=== PATIENT | male | born 1965 | race Caucasian/White ===

== ENCOUNTER 2025-05-29 12:19 | Emergency (ER) | payer OTHER, SELFPAY ==
[2025-05-29] VITALS (8 sets, daily range): BP systolic 121–144; BP diastolic 58–76; PULSE 81–95; RESP 14–32; TEMP 36.3; O2SAT 92–96; BMI 29.8
--- NOTE | 2025-05-29 12:57 | EKG_ITS ---
[facility]
--- NOTE | 2025-05-29 12:57 | DI.CT.S_ITS ---
PROCEDURE: CT ABDOMEN PELVIS W CON
[2025-05-29 13:21] LABS: Hematocrit 29.2 % (41-53); Hemoglobin 9.6 g/dL (13.5-17.5); Mean Corpuscular HGB Conc 32.7 % (30-36); Mean Corpuscular Hemoglobin 27.5 PG (26-34); Mean Corpuscular Volume 84.1 fL (80-100); Platelet Count 521 X10^3/uL (150-400)
[2025-05-29 13:24] LABS: Add Manual Diff / Slide Review YES
[2025-05-29 13:31] LABS: Alanine Aminotransferase 42 IU/L (<50); Albumin 3.5 g/dL (3.5-5.0); Albumin Globulin Ratio 1.1 (1.0-2.8); Alkaline Phosphatase 292 U/L (38-126); Blood Urea Nitrogen 53 mg/dL (9-20); Calcium 9.3 mg/dL (8.4-10.2); Carbon Dioxide 31 mmol/L (22-32); Chloride 92 mmol/L (98-107); Estimated Glomerular Filt Rate > 60 mL/min (>60); Globulin 3.3 g/dL (1.7-4.1); Glucose 116 mg/dL (70-99); HEMOLYSIS < 15 (0-50); Lipase 288 U/L (23-300); Potassium 4.8 mmol/L (3.4-5.1); Sodium 130 mmol/L (137-145); Total Protein 6.8 g/dL (6.3-8.2)
[2025-05-29 13:45] LABS: Band Neutrophils Percent 5.0 % (3-7); Basophils Percent Manual 1.0 % (0-1); Eosinophils Percent Manual 1.0 % (2-4); Lymphocytes Percent Manual 10.0 % (25-45); Metamyelocytes Percent 3.0 % (-0); Monocytes Percent Manual 6.0 % (2-11); Myelocytes Percent 8.0 % (-0); Neutrophils Absolute Manual 13561 /uL (3000-5900); Segmented Neutrophils Percent 66.0 % (38-70); Total Cells Counted 100
[2025-05-29 13:46] LABS: Anisocytosis 1+
[2025-05-29 13:48] LABS: Microcytosis 1+
--- NOTE | 2025-05-29 18:17 | ED_ITS ---
HPI - General Adult
--- NOTE | 2025-05-29 18:17 | ED.GENADULT ---
HPI - General Adult General Chief complaint: Abdominal Pain Stated complaint: Distention from LV tumor, PC ref Time Seen by Provider: 05/29/25 12:57 Source: patient Mode of arrival: Wheelchair History of Present Illness HPI narrative: 60-year-old gentleman with cholangiocarcinoma stage IV all his care at [facility]. His understanding is that he has a 9 cm liver tumor so metastases to his lungs and lymph nodes. He has failed chemotherapy and he has a appointment tomorrow for radiation consultation and tumor marking. He started second-line chemotherapy 3 days ago with oral debrafenib and trametineb. He has been having increasing abdominal distention and was instructed to come to the ER to have his ascites drained. He notes decreased appetite, weakness and increasing overall malaise. He does have long-acting and short-acting morphine available to take at home for pain control. Related Data Allergies Allergy/AdvReac Type Severity Reaction Status Date / Time No Known Allergies Allergy Mild Verified 05/29/25 12:56 Patient History Smoking Status: Never smoker Exam Initial Vital Signs Initial Vital Signs: Vital Signs Temperature 97.4 F L 05/29/25 12:50 Pulse Rate 85 05/29/25 12:50 Respiratory Rate 18 05/29/25 12:50 Blood Pressure 130/66 05/29/25 12:50 Pulse Oximetry 96 05/29/25 12:50 Oxygen Delivery Method Room Air 05/29/25 12:50 General: Alert appropriate Respiratory: Able to speak in full sentences, no obvious respiratory distress Abdomen: Distended, diffusely tender and firm, no significant fluid shift. He does not have rebound or guarding Skin: No obvious rashes, warm and dry Neurologic: Grossly intact no obvious asymmetries or abnormalities Psych: appropriate insight and affect, cooperative Course Orders Ordered: ED Orders 05/29/25 12:57 CT abdomen pelvis w con Stat EKG-12 Lead Stat 05/29/25 13:05 Complete Blood Count AUTO DIFF Stat Comprehensive Metabolic Panel Stat Lipase Stat Ondansetron HCl (Ondansetron 4 Mg/2 Ml Inj) 4 mg IV NOW PRN PRN Reason: Nausea And Vomiting Ondansetron HCl (Ondansetron 4 Mg Odt) 4 mg PO NOW PRN PRN Reason: Nausea And Vomiting Vital Signs Vital signs: Vital Signs - 8 hr 05/29/25 12:50 05/29/25 16:52 Temperature 97.4 F L Pulse Rate 85 95 H Respiratory Rate 18 14 Blood Pressure 130/66 128/60 Pulse Oximetry 96 92 Oxygen Delivery Method Room Air Room Air Medical Decision Making Lab Data 05/29/25 13:05 05/29/25 13:05 Labs: Lab Results 05/29/25 Range/Units 13:05 WBC 19.1 H (4.5-11.0) X10^3/uL RBC 3.48 L (4.5-5.9) X10^6/uL Hgb 9.6 L (13.5-17.5) g/dL Hct 29.2 L (41-53) % MCV 84.1 (80-100) fL MCH 27.5 (26-34) PG MCHC 32.7 (30-36) % RDW 17.0 H (11.6-14.8) % Plt Count 521 H (150-400) X10^3/uL Neut % (Auto) Not Reportable Lymph % (Auto) Not Reportable [place] % (Auto) Not Reportable Eos % (Auto) Not Reportable Baso % (Auto) Not Reportable Lymph # (Auto) Not Reportable [place] # (Auto) Not Reportable Baso # (Auto) Not Reportable Total Counted 100 Seg Neutrophils % 66.0 (38-70) % Band Neutrophils % 5.0 (3-7) % Lymphocytes % (Manual) 10.0 L (25-45) % Monocytes % (Manual) 6.0 (2-11) % Eosinophils % (Manual) 1.0 L (2-4) % Basophils % (Manual) 1.0 (0-1) % Metamyelocytes % 3.0 H (-0) % Myelocytes % 8.0 H (-0) % Neutrophils # (Manual) 65062 H (7377-4089) /uL Plt Morphology Comment RBC Morphology See below Anisocytosis 1+ H Microcytosis 1+ H Sodium 130 L (137-145) mmol/L Potassium 4.8 (3.4-5.1) mmol/L Chloride 92 L (98-107) mmol/L Carbon Dioxide 31 (22-32) mmol/L BUN 53 H (9-20) mg/dL Creatinine 1.21 (0.66-1.25) mg/dL Estimated GFR > 60 (>60) mL/min BUN/Creatinine Ratio 43.8 H (6-22) Glucose 116 H (70-99) mg/dL Calcium 9.3 (8.4-10.2) mg/dL Total Bilirubin 0.8 (0.2-1.3) mg/dL AST 55 (17-59) IU/L ALT 42 (<50) IU/L Alkaline Phosphatase 292 H (38-126) U/L Total Protein 6.8 (6.3-8.2) g/dL Albumin 3.5 (3.5-5.0) g/dL Globulin 3.3 (1.7-4.1) g/dL Albumin/Globulin Ratio 1.1 (1.0-2.8) Lipase 288 (23-300) U/L Imaging Data CT scan - abdomen/pelvis: Radiologist's Impression: PROCEDURE: CT ABDOMEN PELVIS W CON INDICATIONS: Abdominal pain. History of liver cancer. TECHNIQUE: After the administration of intravenous contrast, axial sections acquired from the lung bases to the pubic symphysis. Coronal and sagittal reformats were performed. For radiation dose reduction, the following was used: automated exposure control, adjustment of mA and/or kV according to patient size. COMPARISON: None. FINDINGS: Image quality: Diagnostic. Lower Chest: Left upper lobe pulmonary nodule measuring 8 mm. Left lower lobe solid pulmonary nodule measuring 6 mm. Moderate right pleural effusion. Compressive atelectasis of the right lower lobe. Epicardial soft tissue nodules concerning for metastases. ABDOMEN: Liver: Confluent mass spanning the falciform ligament along the anterior liver with intraparenchymal an extra capsular extension measuring approximately 9.0 x 6.2 x 6.0 cm. Multiple additional smaller satellite lesions. Large subcapsular fluid collection along the right liver margin with fluid component and solid components. Gallbladder: No radiopaque gallstones or wall thickening. Biliary ducts: No biliary dilation. Pancreas: No ductal dilation. Spleen: Size is within normal limits. Adrenal Glands: No adrenal nodules. Kidneys and Ureters: No hydronephrosis. No solid mass. No complex renal cystic lesion which requires follow up. Stomach and Bowel: Laparoscopic band at the gastroesophageal junction. Normal colonic caliber, without significant wall thickening. Normal appendix. Peritoneum: Moderate ascites mostly in the lower abdomen. Loculated fluid collection along the inferior liver margin and diaphragm. Soft tissue nodular density along the omentum greater along the right abdomen. Ventral Wall: No significant ventral hernia. Abdominal Nodes: No retroperitoneal or mesenteric adenopathy by size criteria. Vessels: Aorta and inferior vena cava are normal in size. Trace calcified atherosclerotic plaque. PELVIS: Pelvic Organs: Unremarkable. Bladder: No bladder wall thickening, accounting for underdistention. Pelvic Nodes: No enlarged lymph nodes. Miscellaneous: No inguinal hernias are seen. Bones: No aggressive osseous abnormality. IMPRESSION: Large dominant liver mass with multiple additional smaller Intraparenchymal hepatic lesions. Subcapsular and perihepatic loculated fluid collections. Cannot exclude hemorrhage. Omental carcinomatosis. Epicardial carcinomatosis. Left pulmonary nodules suspicious for metastases. Moderate right pleural effusion with right lower lobe atelectasis. Moderate ascites. Dictated by: Erlin Loaiza M.D. on 05/29/2025 at 14:13 [facility] Narrative Medical decision making narrative: 60-year-old gentleman with advanced cholangiocarcinoma recently started second-line chemotherapy in his supposed to talk to Radiation oncologist at 11:00 a.m. tomorrow and have radiation markers placed at 2:00 p.m. tomorrow. CBC is 19.1. Platelets are 521. Hemoglobin is 9.6. I do not have comparisons. Chemistries show sodium slightly low at 130. Creatinine at 1.2. Alk-phos is 292. Liver studies are within normal range. Lipase is normal CT scan shows the known large dominant liver mass and pulmonary nodules shows subcapsular and perihepatic loculated fluid collections, omental carcinomatosis, epicardial carcinomatosis, moderate right pleural effusion and only moderate ascites. Findings reviewed with the patient as well as the findings from the CT scan. This sounds like it is a significant progression and simply 3 weeks. Images have been sent down electronically to [facility] and I have contacted the [facility] transfer center to ask them to message his oncologist, Dr. Davey The patient and his are given copies of the CT scan report He is given IV Dilaudid to get on top of his pain, he has immediate active and long-acting morphine available at home. Hopefully Dr. Davey we will be able to talk to him before his 11:00 a.m. radiation oncology appointment tomorrow and help decide if he truly needs to go to [place] or not given the progressive findings on the CT scan. Discharge Plan Departure Patient Disposition: Home Clinical Impression: Cholangiocarcinoma, Abdominal carcinomatosis Activity Restrictions/Additional Instructions: I am so sorry to share such horrible news with you today The CT scan that we did at [facility] suggests that this cancer has spread much further than you were aware of 3 weeks ago. I have sent the images down to [facility] and left a message for Dr. Davey so that he can take a look at them. He is aware that you do have a radiation oncology appointment at 11:00 a.m. and radiation marking appointment at 2:00 p.m. tomorrow I have given you a dose of Dilaudid in the emergency room to hopefully get on top of your pain so that you can continue with the oral morphine regimen at home There is some fluid in your belly but there is not enough at this time to do a paracentesis in the emergency department If you find that you are getting worse or develop any new symptoms, please feel free to return to the emergency department for further evaluation. Stand Alone Forms: Patient Portal/API
[2025-05-29] MEDS: ONDANSETRON 4 MG/2 ML INJ IV (18:59)
== END 2025-05-29 19:30 | disposition home or self-care (01) ==
PROVIDERS: Emergency Medicine; Emergency Provider Emergency Medicine
DX: C22.1 Intrahepatic bile duct carcinoma (principal); C76.2 Malignant neoplasm of abdomen
CPT/HCPCS: 36415; 74177; 80053; 83690; 85007; 85025; 93005; 96374; 96375; 99284; J1171; J2405; Q9967